=== PATIENT | female | born 1960 | race Caucasian/White ===

== ENCOUNTER → 2017-04-16 | Outpatient (CLI) | payer OTHER ==
[~2017-04-16] MED LIST: KRILL OIL 1,001 EAC1; METFORMIN HCL500 MG; VITAMIN; VITAMIN B12-FO1 EAC1; [UNRECOGNIZED DRUG - REMARK]
== END ==
LOC: MRI 09:58
DX: M75.102 Unspecified rotator cuff tear or rupture of left shoulder, not specified as traumatic (principal)